=== PATIENT | male | born 1945 | race Caucasian/White ===

== ENCOUNTER 2019-02-24 19:06 | Emergency (ER) | payer MEDICARE, OTHER ==
--- NOTE | 2019-02-24 19:29 | ED.PDOC ---
History of Present Illness - General Chief Complaint: GI Problem Stated Complaint: weakness poor appetite Time Seen by Provider: 02/24/19 19:10 Source: patient Exam Limitations: no limitations - History of Present Illness Initial Comments: Uziel Acosta 73 y/o male stated that she just got back from a trip in [facility] for one week arrived 4 days ago then had onset of watery diarrhea on arrival here in the [place] which subsided yesterday.Stated still no appetite,denies nausea/vomiting,fever,chills,no blood in stool. Timing/Duration: resolved prior to arrival, other - 4 days ago Severity: moderate Improving Factors: nothing Worsening Factors: eating Associated Symptoms: other - see hpi Allergies/Adverse Reactions: Allergies NO KNOWN ALLERGY Allergy (Verified 02/24/19 19:26) Home Medications: Ambulatory Orders Carvedilol 02/24/19 Dulaglutide [Trulicity] 02/24/19 Glyburide-Metformin [Glyburide/Metformin HCl 5-500 mg] 1 tab PO 02/24/19 Nitroglycerin 02/24/19 Rosuvastatin Calcium 02/24/19 Ticagrelor [Brilinta] 02/24/19 levoFLOXacin [Levaquin] 500 mg PO DAILY 7 Days #7 tab 02/24/19 Review of Systems - Review of Systems Constitutional: States: no symptoms reported EENTM: States: no symptoms reported Respiratory: States: no symptoms reported Cardiology: States: no symptoms reported Gastrointestinal/Abdominal: States: see HPI, diarrhea Genitourinary: States: no symptoms reported Musculoskeletal: States: no symptoms reported Skin: States: no symptoms reported Neurological: States: no symptoms reported All other Systems: Reviewed and Negative, No Change from Baseline Past Medical History (General) - Patient Medical History Hx Cardiac Disorders: Yes Hx Hypertension: Yes Hx Diabetes: Yes Hx Other PMH: Yes - Parkinsons Disease Surgical History: other - knee,cardiac stent,vasectomy,cataract - Vaccination History Hx Pneumococcal Vaccination: Yes - Triage Comment ED Triage Comment: States sent from [facility] for rehydration, had diarrhea past several days, none now, but feels weak, dizzy and poor appetite Family Medical History - Family History Father Hx Family Stroke: Yes - mom Hx Cardiac Disease: Yes - dad Hx Family Cancer: Yes - dad-colon Hx Family;Other: Dementia Physical Exam - Physical Exam General Appearance: Alert, Comfortable, No apparent distress Eye Exam: bilateral normal Ears, Nose, Throat: hearing grossly normal, normal ENT inspection, normal pharyn x Neck: non-tender, full range of motion, supple, normal inspection Respiratory: chest non-tender, lungs clear, normal breath sounds, no respiratory distress Cardiovascular/Chest: normal peripheral pulses, regular rate, rhythm, no murmur Peripheral Pulses: radial,right: 2+, radial,left: 2+ Gastrointestinal/Abdominal: normal bowel sounds, non tender, soft, no organomegaly Back Exam: no CVA tenderness, no vertebral tenderness Extremity: no pedal edema, no calf tenderness Neurologic: alert, oriented x 3 Skin Exam: normal color, warm/dry, other - no rashes skin Progress - Progress Progress: 02/24/19 19:42 Vital Signs - 8 hr 02/24/19 19:19 Temperature 98.5 F Pulse Rate [ 88 Right] Respiratory 18 Rate Blood Pressure 149/62 [Left Arm] O2 Sat by Pulse 98 Oximetry - Results/Orders Results/Orders: 02/24/19 19:29 IV Care:Saline Lock per Protoc QSHIFT 02/24/19 21:41 OVA & PARASITE EXAM Routine CLOSTRIDIUM DIFFICILE AG/TOXIN Urgent STOOL CULTURE Stat URINALYSIS Stat Laboratory Results - last 24 hr 02/24/19 02/24/19 02/24/19 19:36 19:36 19:36 WBC 4.8 RBC 4.31 L Hgb 13.7 L Hct 39.9 L MCV 92.5 MCH 31.9 H MCHC 34.5 RDW 14.2 Plt Count 110 L MPV 8.4 Absolute Neuts (auto) Not Reportable Absolute Lymphs (auto) Not Reportable Absolute Monos (auto) Not Reportable Absolute Eos (auto) Not Reportable Neutrophils % Not Reportable Neutrophils % (Manual) 63.0 Lymphocytes % Not Reportable Lymphocytes % (Manual) 12.0 Monocytes % Not Reportable Monocytes % (Manual) 20.0 Eosinophils % Not Reportable Basophils % Not Reportable Band Neutrophils 3.0 H Eosinophils 2.0 Platelet Estimate Decreased Normal RBC Morphology Normal rbc morph PT 11.5 H INR 1.15 PTT (SP) 32.1 H Sodium 135 Potassium 4.2 Chloride 108 Carbon Dioxide 19 L Anion Gap 12.2 BUN 33 H Creatinine 1.27 BUN/Creatinine Ratio 26.0 H Random Glucose 93 Serum Osmolality 277.1 Lactic Acid 0.9 Calcium 8.8 Magnesium 1.5 L Total Bilirubin 3.1 H* Direct Bilirubin 0.3 H Indirect Bilirubin 2.8 H AST 29 ALT 29 Alkaline Phosphatase 56 Creatine Kinase 70 CK-MB (CK-2) 2.0 CK-MB (CK-2) % Not Reportable Troponin I < 0.02 Serum Total Protein 6.8 Albumin 3.4 Discuss all test result with patient Departure - Departure Clinical Impression: Diarrhea Qualifiers: Diarrhea type: unspecified type Qualified Code(s): R19.7 - Diarrhea, unspecified Time of Disposition: 22:03 Disposition: Discharge to Home or Self Care Condition: Fair Departure Forms: ED Discharge - Pt. Copy, Patient Portal Self Enrollment Instructions: DI for Diarrhea and Traveler's Diarrhea -- Adult Diet: bland diet, other - AVOID SPICY,GREASY and DAIRY FOODS until better Prescriptions: levoFLOXacin [Levaquin] 500 mg PO DAILY 7 Days #7 tab Home Medications: Ambulatory Orders Carvedilol 02/24/19 Dulaglutide [Trulicity] 02/24/19 Glyburide-Metformin [Glyburide/Metformin HCl 5-500 mg] 1 tab PO 02/24/19 Nitroglycerin 02/24/19 Rosuvastatin Calcium 02/24/19 Ticagrelor [Brilinta] 02/24/19 levoFLOXacin [Levaquin] 500 mg PO DAILY 7 Days #7 tab 02/24/19 Additional Instructions: Return to Emergency room as needed;Continue with all home medications;Take Levaquin after meals
[2019-02-24] MEDS ORDERED: LACTATED RINGERS 1,000 ML IVS ONE (19:36)
[2019-02-24] MEDS ORDERED: MAGNESIUM SULFATE PREMIX 2GM 2 GM in PREMIX BAG 1 BAG IVPB ONE (20:12)
[2019-02-24] MEDS ORDERED: levoFLOXacin 500MG IV 500 MG in PREMIX BAG 1 BAG IVPB ONE (20:12)
[2019-02-24] MEDS ORDERED: levoFLOXacin 500MG IV 100 ML IVPB ONE (20:30)
[2019-02-24] MEDS ORDERED: MAGNESIUM SULFATE PREMIX 2GM 50 ML IVPB ONE (20:31)
[2019-02-24 22:15] VITALS: BP 121/64; TEMP 97.9; O2SAT 97
== END 2019-02-24 22:10 | disposition home or self-care (01) ==
LOC: ER 19:06
DX: R19.7 Diarrhea, unspecified (principal); R53.1 Weakness; R42 Dizziness and giddiness; I51.9 Heart disease, unspecified; I10 Essential (primary) hypertension; E11.9 Type 2 diabetes mellitus without complications; G20 Parkinson's disease; Z95.5 Presence of coronary angioplasty implant and graft; Z79.899 Other long term (current) drug therapy
CPT/HCPCS: 36415; 80048; 80076; 81001; 82550; 82553; 83605; 84484; 85025; 85610; 85730; 87177; 87209; 87324; 87449; J1956; J3475; J7120

== ENCOUNTER → 2019-02-26 | Outpatient (CLI) | payer MEDICARE, OTHER ==
--- NOTE | 2019-02-27 14:28 | RAD ---
EXAM DESCRIPTION: Hand,Left 3 Views CLINICAL HISTORY: M79.642 COMPARISON: None Available. TECHNIQUE: AP, LATERAL, AND OBLIQUE FINDINGS: Three-view left hand shows no fracture or dislocation. There is no bone lesion. Advanced degenerative changes in the lateral carpus with sclerosis and spurring and slight lateral subluxation of the base of the first metacarpal. Degenerative changes are prominent at the interphalangeal joint of the thumb with milder degenerative narrowing of the DIP joints, PIP joints and first metacarpal phalangeal joint. Mild degenerative narrowing of second and third metacarpal phalangeal joint with spurring. Calcification of the triangular fibrocartilage. Narrowing of the radiocarpal joint. IMPRESSION: Degenerative changes as described. Electronically signed by: Ian Ponce MD 02/27/2019 2:26 PM CDT
--- NOTE | 2019-02-27 14:29 | RAD ---
EXAM DESCRIPTION: Hand,Right 3 Views CLINICAL HISTORY: M79.642 COMPARISON: None Available. TECHNIQUE: AP, LATERAL, AND OBLIQUE FINDINGS: Three-view right hand shows no fracture or dislocation. There is no bone lesion. Degenerative narrowing of the DIP joints is noted with spurring. Marked degenerative changes at the interphalangeal joint of the thumb. Advanced degenerative changes of the lateral carpus at the first carpal metacarpal joint. Spurring is seen with lateral subluxation of the base of the first metacarpal. Degenerative calcification of the triangular fibrocartilage with mild narrowing of the radiocarpal joint. IMPRESSION: Degenerative arthritic changes as described. Electronically signed by: Ian Ponce MD 02/27/2019 2:27 PM CDT
== END ==
LOC: RAD 08:59
PROVIDERS: ATTEND Orthopaedic Surgery
DX: Z01.818 Encounter for other preprocedural examination (principal); M19.041 Primary osteoarthritis, right hand; M19.042 Primary osteoarthritis, left hand

== ENCOUNTER 2019-03-25 05:46 | Day surgery (SDC) | payer MEDICARE, OTHER ==
--- NOTE | 2019-03-19 09:42 | HP ---
CHIEF COMPLAINT: Bilateral hand numbness. HISTORY OF PRESENT ILLNESS: Mr. Acosta is a 73-year-old male with a history of ongoing numbness in the hands. He says the right is worse than the left at this point. He denies any trauma related to this, denies any radiation of pain and denies any neurologic symptoms. The numbness he has bothers him both at night and during the day. He says he would like to proceed with carpal tunnel release. After discussing the risks, benefits and alternatives to that, he has given informed consent. PAST SURGICAL HISTORY: 1. Bilateral knee replacement. MEDICATIONS: 1. Levaquin. 2. Carvedilol. 3. Irbesartan. 4. Glyburide. 5. Metformin. 6. Crestor. 7. Trulicity. 8. Lantus. CURRENT PAIN CONTRACT: None. ALLERGIES: NO KNOWN DRUG ALLERGIES. CODE STATUS: DNR. IMMUNIZATIONS: Up to date. SOCIAL HISTORY: The patient does not smoke or use any illicit drugs. He does drink on occasion. FAMILY HISTORY: None pertinent to today's complaint. REVIEW OF SYSTEMS: Negative except as indicated in the History of Present Illness. PHYSICAL EXAMINATION: VITAL SIGNS: Blood pressure 140/87. Pulse 89. Height 6'3". Weight 202 pounds. MENTAL STATUS: The patient is awake, alert, and is able to give a good history and participate in the physical. The patient is oriented to person, place and time. SKIN: Normal tone and turgor. MUSCULOSKELETAL: He has positive carpal compression test which is present bilaterally. He has minor thenar atrophy bilaterally. He does maintain full range of motion and the digits are warm and well perfused. He has full arts manager strength and he has negative Tinel's. ASSESSMENT: 1. Carpal tunnel syndrome. PLAN: The plan at this point is for carpal tunnel release. We have discussed the risks, benefits, and alternatives to that and the patient has given informed consent. #[id number] [facility]
[2019-03-25] MEDS ORDERED: LACTATED RINGERS 1,000 ML ONE (05:56)
[2019-03-25] MEDS ORDERED: SODIUM CHL 0.9% 100ML MINI-BAG 100 ML IVPB ONE (05:56)
[2019-03-25] MEDS ORDERED: ceFAZolin SODIUM 1 GM VIAL ONE ×2 (05:56→08:52)
[2019-03-25] MEDS ORDERED: LIDOCAINE 1% 10 ML VIAL INJ ONE (07:00)
[2019-03-25] MEDS ORDERED: PROPOFOL 200 MG/20 ML VIAL IV ONE (07:00)
[2019-03-25] MEDS ORDERED: MIDAZOLAM INJ 2 MG/2 ML VIAL ONE (08:38)
[2019-03-25] MEDS ORDERED: fentaNYL CITRATE INJ 50 MCG/ML AMP ONE (08:39)
[2019-03-25] MEDS ORDERED: VANCOMYCIN HCL INJ 1,000 MG VIAL IVPB ONE (08:52)
[2019-03-25] MEDS ORDERED: BUPIVACAINE 0.25% INJ 30 ML VIAL INJ ONE (08:52)
[2019-03-25] MEDS: LIDOCAINE 1% 50 ML VIAL INJ ONE ×2 (09:10→09:25)
[2019-03-25 10:12] VITALS: BP 126/63; TEMP 97; O2SAT 99
--- NOTE | 2019-03-26 08:28 | OP ---
DATE OF PROCEDURE: 03/25/19 PREOPERATIVE DIAGNOSIS: 1. Carpal tunnel syndrome. POSTOPERATIVE DIAGNOSIS: 1. Carpal tunnel syndrome. PROCEDURE: 1. Carpal tunnel release. SURGEON: Haider wSeeney MD. VEGETABLE HARVEST MACHINE OPERATOR: Jaycob Gonsalves CST, -Alena. ANESTHESIA: Local with sedation. COMPLICATIONS: None. FINDINGS: Narrowing of the median nerve across the carpal tunnel with thickening of the transverse carpal ligament. INDICATION: Mr. Acosta has a history of severe symptoms consistent with carpal tunnel syndrome. He has failed conservative measures and because of that has requested operative intervention. After discussing the risks, benefits and alternatives to that, the patient has given informed consent for carpal tunnel release. PROCEDURE: The patient was brought to the Operating Room and placed in the supine position. Sedation was administered and local anesthetic was injected into the operative area under sterile conditions. After the injection of anesthetic, the arm was sterilely prepped and draped. A longitudinal incision was made directly overlying the transverse carpal ligament and blunt dissection was carried down to the ligament. The transverse carpal ligament was sharply transected along its length and a [place] elevator was used to ensure complete release of the ligament. Once release had been confirmed, the wound was thoroughly irrigated and the wound was closed with Nylon suture. A sterile dressing was placed and the patient was taken to the Day Surgery Unit. POSTOPERATIVE PLAN: The patient has been encouraged to do range of motion of the digits and will followup with us in two days. #[id number] [facility]
== END 2019-03-25 10:20 | disposition home or self-care (01) ==
LOC: AMB 05:46
PROVIDERS: ATTEND Orthopaedic Surgery
DX: G56.01 Carpal tunnel syndrome, right upper limb (principal); Z96.653 Presence of artificial knee joint, bilateral; Z79.4 Long term (current) use of insulin; Z79.899 Other long term (current) drug therapy
CPT/HCPCS: 01810; 36416; 64721; 80307; 82948; 93005; J0690; J2250; J3010; J3370; J3490; J7050; J7120

== ENCOUNTER 2019-04-29 05:35 | Day surgery (SDC) | payer MEDICARE, OTHER ==
[2019-04-29] MEDS ORDERED: SODIUM CHL 0.9% 100ML MINI-BAG 100 ML IVPB ONE (07:08)
[2019-04-29] MEDS ORDERED: LACTATED RINGERS 1,000 ML ONE (07:08)
[2019-04-29] MEDS ORDERED: ceFAZolin SODIUM 1 GM VIAL ONE ×2 (07:08→12:10)
[2019-04-29] MEDS ORDERED: LACTATED RINGERS 1,000 ML IVS ONE ×2 (08:51→13:49)
[2019-04-29] MEDS ORDERED: ePHEDrine SULF 50 MG/ML IV ONE (10:00)
[2019-04-29] MEDS ORDERED: PROPOFOL 200 MG/20 ML VIAL IV ONE (10:00)
[2019-04-29] MEDS ORDERED: KETAMINE HCL 50 MG/ML SYG IV ONE (12:06)
[2019-04-29] MEDS ORDERED: MIDAZOLAM INJ 2 MG/2 ML VIAL ONE (12:06)
[2019-04-29] MEDS ORDERED: fentaNYL CITRATE INJ 50 MCG/ML AMP ONE (12:06)
[2019-04-29] MEDS ORDERED: BUPIVACAINE 0.25% INJ 30 ML VIAL INJ ONE (12:09)
[2019-04-29] MEDS ORDERED: VANCOMYCIN HCL INJ 1,000 MG VIAL IVPB ONE (12:10)
[2019-04-29] MEDS ORDERED: LIDOCAINE 1% 50 ML VIAL INJ ONE (12:43)
[2019-04-29 15:00] VITALS: BP 142/74; TEMP 97; O2SAT 98
--- NOTE | 2019-04-30 08:24 | OP ---
DATE OF PROCEDURE: 04/29/19 PREOPERATIVE DIAGNOSIS: 1. Carpal tunnel syndrome of the left hand. POSTOPERATIVE DIAGNOSIS: 1. Carpal tunnel syndrome of the left hand. PROCEDURE: 1. Carpal tunnel release. SURGEON: Haider Sweeney MD. SCREEN PRINTING EQUIPMENT SETTER: None. ANESTHESIA: Local with sedation. COMPLICATIONS: None. FINDINGS: Thickening of the transverse carpal ligament and narrowing of the median nerve. INDICATION: Mr. Acosta has a long history of bilateral hand numbness. He has undergone right carpal tunnel release and has requested left carpal tunnel release. After discussing the risks, benefits and alternatives to operative therapy, the patient has given informed consent for carpal tunnel release. PROCEDURE: The patient was brought to the Operating Room and placed in the supine position. Sedation was administered and local anesthetic was injected into the operative area under sterile conditions. After the injection of anesthetic, the arm was sterilely prepped and draped. A longitudinal incision was made directly overlying the transverse carpal ligament and blunt dissection was carried down to the ligament. The transverse carpal ligament was sharply transected along its length and a [place] elevator was used to ensure complete release of the ligament. Once release had been confirmed, the wound was thoroughly irrigated and the wound was closed with Nylon suture. A sterile dressing was placed and the patient was taken to the Day Surgery Unit. POSTOPERATIVE PLAN: The patient has been encouraged to do range of motion of the digits and will followup with us in two days. #[id number] [facility]
== END 2019-04-29 14:55 | disposition home or self-care (01) ==
LOC: AMB 05:35
PROVIDERS: ATTEND Orthopaedic Surgery
DX: G56.02 Carpal tunnel syndrome, left upper limb (principal); Z96.653 Presence of artificial knee joint, bilateral
CPT/HCPCS: 01810; 36416; 64721; 80307; 82948; 87070; J0690; J2250; J3010; J3370; J3490; J7050; J7120

== ENCOUNTER 2019-09-13 11:58 | Emergency (ER) | payer MEDICARE, OTHER ==
[2019-09-13] MEDS ORDERED: SODIUM CHLORIDE 0.9% (FLUSH) 10 ML SYG IV PRN (12:11)
--- NOTE | 2019-09-13 12:43 | RAD ---
EXAM: XR Chest, 1 View CLINICAL HISTORY: sob TECHNIQUE: Frontal view of the chest. COMPARISON: No relevant prior studies available. FINDINGS: Lungs: Chronic obstructive changes present with paucity of vasculature to the upper lobes. No consolidation. Pleural space: Unremarkable. No pneumothorax. Heart: Unremarkable. No cardiomegaly. Mediastinum: Unremarkable. Bones/joints: Unremarkable. IMPRESSION: No acute findings in the chest. Chronic changes as above. Electronically signed by: Renee Trejo MD 09/13/2019 12:41 PM AIRPORT OPERATIONS OFFICER
--- NOTE | 2019-09-13 12:52 | CT ---
EXAM DESCRIPTION: Head CLINICAL HISTORY: 73 years Male syncope TECHNIQUE: Axial noncontrast CT head with coronal and sagittal reformats. All CT scans at this facility use dose modulation, iterative reconstruction, and/or weight based dosing when appropriate to reduce radiation dose to as low as reasonably achievable. COMPARISON: None. FINDINGS: Diffuse parenchymal volume loss. Chronic small vessel disease. No intracranial hemorrhage, midline shift, mass, mass effect, hydrocephalus or extra-axial fluid collection. No obvious large territorial infarction. Status post bilateral cataract surgeries. Paranasal sinuses and mastoid air cells are clear. Osseous structures and soft tissues are unremarkable. IMPRESSION: No acute findings. Electronically signed by: Yoel Bernal MD 09/13/2019 12:50 PM RETAIL SELLING SPECIALIST
--- NOTE | 2019-09-13 13:36 | ED.PDOC ---
History of Present Illness - General Chief Complaint: Syncope/Near Syncope Stated Complaint: Near syncopal episode this AM Time Seen by Provider: 09/13/19 12:11 - History of Present Illness Initial Comments: Pt was in the restoration today , abruptly stood up and felt lightheaded and sat back on the chair after that he does not remember how he was on the floor , denies for any chest pain or sob or dizziness , no acute complain at this time Timing/Duration: 1-3 hours Severity: mild, moderate Improving Factors: nothing Worsening Factors: nothing Associated Symptoms: syncope Allergies/Adverse Reactions: Allergies NO KNOWN ALLERGY Allergy (Verified 09/13/19 12:39) Home Medications: Ambulatory Orders Carvedilol 1 tablet PO BID 02/24/19 Dulaglutide [Trulicity] 1 dose INJ WKLY 02/24/19 Glyburide-Metformin [Glyburide/Metformin HCl 5-500 mg] 1 tab PO BID 02/24/19 Nitroglycerin 1 tablet SL PRN PRN 02/24/19 Rosuvastatin Calcium 1 tablet PO DAILY 02/24/19 Ticagrelor [Brilinta] 1 tablet PO BID 02/24/19 Cetirizine HCl 1 tablet PO DAILY 03/19/19 Coenzyme Q10 (Ubidecarenone) [Coq-10] 100 mg PO DAILY 03/19/19 Ipratropium Brom 0.06% Nasal [Atrovent Nasal [place] 0.06%] 1 spray BNAS PRN PRN 03/19/19 Irbesartan 300 mg PO DAILY 03/19/19 Multiple Vitamins W/ Minerals [Centrum Silver] 1 tab PO DAILY 03/19/19 Pantoprazole Sodium 40 mg PO DAILY 03/19/19 Review of Systems - Review of Systems Constitutional: States: no symptoms reported EENTM: States: no symptoms reported Respiratory: States: no symptoms reported Cardiology: States: see HPI Gastrointestinal/Abdominal: States: no symptoms reported Genitourinary: States: no symptoms reported Musculoskeletal: States: no symptoms reported Skin: States: no symptoms reported Neurological: States: no symptoms reported Endocrine: States: no symptoms reported Hematologic/Lymphatic: States: no symptoms reported Past Medical History (General) - Patient Medical History Hx Stroke: No Hx of COPD: No Hx Cardiac Disorders: Yes - [place] 2013 Hx Congestive Heart Failure: No Hx Hypertension: No Hx Diabetes: Yes Hx Cancer: No Hx MRSA: No MRSA Source:: nose Surgical History: coronary bypass surgery, tonsillectomy, other - Vaccination History Hx Influenza Vaccination: Yes Hx Pneumococcal Vaccination: Yes Immunizations Up to Date: Yes - Social History Hx Tobacco Use: Yes Hx Alcohol Use: No Hx Substance Use: No Hx Substance Use Treatment: No Hx Depression: No - Female History Patient is a Female of Child Bearing Age (10 -59 yrs old): No Patient : No Family Medical History - Family History Father Hx Family Stroke: Yes - mom Hx Cardiac Disease: Yes - dad Hx Family Cancer: Yes - dad-colon Hx Family;Other: Dementia Physical Exam - Physical Exam General Appearance: Alert, Comfortable, Well Developed, Well Groomed, Well Hydrated, Well Nourished Eye Exam: bilateral normal Ears, Nose, Throat: hearing grossly normal, normal ENT inspection, normal pharynx Neck: non-tender, full range of motion, supple, normal inspection Respiratory: chest non-tender, lungs clear, normal breath sounds, no respiratory distress, no accessory muscle use Cardiovascular/Chest: regular rate, rhythm, no edema, no gallop Gastrointestinal/Abdominal: non tender, soft Back Exam: normal inspection, no CVA tenderness Extremity: normal range of motion, non-tender, normal inspection, no pedal edema Neurologic: no motor/sensory deficits, alert, normal mood/affect, oriented x 3 Skin Exam: normal color, warm/dry Lymphatic: no adenopathy Progress - Results/Orders Results/Orders: 09/13/19 12:11 Sodium Chloride 0.9% (Flush) [Saline Flush Syringe] 10 ml IV PRN PRN EKG Stat Pulse Ox Stat 09/13/19 14:30 TROPONIN-I Stat Laboratory Results WBC 7.5 K/mm3 (4.8-10.8) 09/13/19 12:21 RBC 4.99 M/mm3 (4.70-6.10) 09/13/19 12:21 Hgb 15.5 gm/dL (14.0-18.0) 09/13/19 12:21 Hct 46.5 % (42.0-52.0) 09/13/19 12:21 MCV 93.2 fl (80.0-94.0) 09/13/19 12:21 MCH 31.0 pg (27.0-31.0) 09/13/19 12:21 MCHC 33.3 g/dL (33.0-37.0) 09/13/19 12:21 RDW 14.7 % (11.5-14.5) H 09/13/19 12:21 Plt Count 129 K/mm3 (130-400) L 09/13/19 12:21 MPV 8.7 fl (7.40-10.4) 09/13/19 12:21 Absolute Neuts (auto) 5.00 K/uL (1.8-6.8) 09/13/19 12:21 Absolute Lymphs (auto) 1.30 K/uL (1.0-3.4) 09/13/19 12:21 Absolute Monos (auto) 0.80 K/uL (0.2-0.8) 09/13/19 12:21 Absolute Eos (auto) 0.40 K/uL (0.0-0.4) 09/13/19 12:21 Absolute Basos (auto) 0.00 K/uL (0.0-0.1) 09/13/19 12:21 Neutrophils % 66.8 % (42.0-78.0) 09/13/19 12:21 Lymphocytes % 16.6 % (20.0-50.0) L 09/13/19 12:21 Monocytes % 10.5 % (2.0-9.0) H 09/13/19 12:21 Eosinophils % 5.5 % (1.0-5.0) H 09/13/19 12:21 Basophils % 0.6 % (0.0-2.0) 09/13/19 12:21 PT 11.4 SECONDS (9.0-10.9) H 09/13/19 12:21 INR 1.15 (0.9-1.15) 09/13/19 12:21 PTT (SP) 23.3 SECONDS (21.8-31.6) 09/13/19 12:21 D-Dimer, Quantitative 0.40 mg/L FEU (0-0.49) 09/13/19 12:21 Sodium 140 mmol/L (135-145) 09/13/19 12:21 Potassium 3.9 mmol/L (3.6-5.0) 09/13/19 12:21 Chloride 110 mmol/L (101-111) 09/13/19 12:21 Carbon Dioxide 20 mmol/L (21-31) L 09/13/19 12:21 Anion Gap 13.9 (12-18) 09/13/19 12:21 BUN 21 mg/dL (7-18) H 09/13/19 12:21 Creatinine 1.05 mg/dL (0.6-1.3) 09/13/19 12:21 BUN/Creatinine Ratio 20.0 (10-20) 09/13/19 12:21 Random Glucose 143 mg/dL (70-105) H 09/13/19 12:21 Serum Osmolality 284.8 mOsm/L (275-295) 09/13/19 12:21 Calcium 9.3 mg/dL (8.4-10.2) 09/13/19 12:21 Magnesium 1.7 mg/dL (1.8-2.5) L 09/13/19 12:21 Creatine Kinase 53 IU/L (38-174) 09/13/19 12:21 CK-MB (CK-2) 2.3 ng/mL (0.0-4.4) 09/13/19 12:21 CK-MB (CK-2) % Not Reportable 09/13/19 12:21 Troponin I 0.02 ng/mL (0.01-0.05) 09/13/19 12:21 B-Natriuretic Peptide 103.0 pg/ml (0-100) H 09/13/19 12:21 Departure - Departure Clinical Impression: Syncope Time of Disposition: 13:37 Disposition: Discharge to Home or Self Care Condition: Good Departure Forms: ED Discharge - Pt. Copy, Patient Portal Self Enrollment Diet: resume usual diet Activity: increase activity as tolerated Referrals: Eamon Rasheed MD [Primary Care Provider] - 1-2 Weeks Home Medications: Ambulatory Orders Carvedilol 1 tablet PO BID 02/24/19 Dulaglutide [Trulicity] 1 dose INJ WKLY 02/24/19 Glyburide-Metformin [Glyburide/Metformin HCl 5-500 mg] 1 tab PO BID 02/24/19 Nitroglycerin 1 tablet SL PRN PRN 02/24/19 Rosuvastatin Calcium 1 tablet PO DAILY 02/24/19 Ticagrelor [Brilinta] 1 tablet PO BID 02/24/19 Cetirizine HCl 1 tablet PO DAILY 03/19/19 Coenzyme Q10 (Ubidecarenone) [Coq-10] 100 mg PO DAILY 03/19/19 Ipratropium Brom 0.06% Nasal [Atrovent Nasal [place] 0.06%] 1 spray BNAS PRN PRN 03/19/19 Irbesartan 300 mg PO DAILY 03/19/19 Multiple Vitamins W/ Minerals [Centrum Silver] 1 tab PO DAILY 03/19/19 Pantoprazole Sodium 40 mg PO DAILY 03/19/19 Comments: Follow up PCP in 1-2 days
[2019-09-13] MEDS ORDERED: SODIUM CHLORIDE 0.9% 1000ML 1,000 ML IVS ONE (14:07)
[2019-09-13 16:55] VITALS: BP 144/74; TEMP 96; O2SAT 99
== END 2019-09-13 15:18 | disposition home or self-care (01) ==
LOC: ER 11:58
DX: R55 Syncope and collapse (principal); I25.2 Old myocardial infarction; E11.9 Type 2 diabetes mellitus without complications; Z95.1 Presence of aortocoronary bypass graft; Z87.891 Personal history of nicotine dependence; Z79.84 Long term (current) use of oral hypoglycemic drugs
CPT/HCPCS: 36415; 70450; 71045; 80048; 82550; 82553; 83880; 84484; 85025; 85379; 85610; 85730; 93005; J7030

== ENCOUNTER → 2020-05-18 | Outpatient (CLI) | payer MEDICARE, OTHER | LOC: GMAJ 14:43 | PROVIDERS: ATTEND Family Medicine | DX: Z12.5 Encounter for screening for malignant neoplasm of prostate (principal); R53.82 Chronic fatigue, unspecified; R53.83 Other fatigue; E11.9 Type 2 diabetes mellitus without complications; E78.00 Pure hypercholesterolemia, unspecified; I10 Essential (primary) hypertension | CPT/HCPCS: 84439; 84443; G0103 ==